=== PATIENT | male | born 1975 | race Caucasian/White ===

== ENCOUNTER 2024-10-30 07:34 | Outpatient (CLI) | payer OTHER, SELFPAY ==
--- OUTSIDE RECORDS SUMMARY | 2024-10-30 07:39 | XMS_ITS | Clinical Summary ---
Author Organization [facility] Address [address] [place] [address] Care Team Providers Care Solution Sales Senior Executive Name Role Phone Franklyn Chan MD Primary Care Provider [phone] Allergies No known active allergies Medications HYDROcodone-acetami nophen (NORCO) 7.5-325 MG tabletIndications:A cute Pain < 7 Day Supply Take 1 tablet by mouth 2 (two) times daily as needed for Pain. Indications: Acute Pain < 7 Day Supply 14 tablet 2 Active tadalafil 20 MG tabletIndications:E rectile dysfunction, unspecified erectile dysfunction type Take 1 tablet (20 mg total) by mouth daily as needed for Erectile Dysfunction. 10 tablet 2 Active rosuvastatin (CRESTOR) 20 MG tabletIndications:M ixed hyperlipidemia Take 1 tablet (20 mg total) by mouth nightly at bedtime. 90 tablet 1 2 Active traZODone 50 MG tabletIndications:P rimary insomnia,Mild episode of recurrent major depressive disorder Take 1 tablet (50 mg total) by mouth nightly at bedtime. 90 tablet 3 2 Active cyclobenzaprine (FLEXERIL) 10 MG tabletIndications:C hronic midline low back pain without sciatica Take 1 tablet (10 mg total) by mouth nightly as needed for Muscle Spasms. 30 tablet 2 Active albuterol sulfate HFA 108 (90 Base) MCG/ACT inhalerIndications: Mild intermittent asthma without complication (HHS/HCC) INHALE 2 PUFFS BY MOUTH EVERY 6 HOURS NEEDED WHEEZING. Please go online and schedule your physical thanks. 8.5 g 4 Active Active Problems Problem Noted Date Diagnosed Date ED (erectile dysfunction) 09/24/2021 Tobacco dependence 09/22/2020 Tobacco use disorder 09/20/2020 Generalized anxiety disorder 09/20/2020 Major depressive disorder with current active ep isode 09/20/2020 Mixed hyperlipidemia 08/23/2020 Mild intermittent asthma without complication (H HS/HCC) 08/22/2020 Primary insomnia 08/22/2020 Resolved Problems Problem Noted Date Diagnosed Date Resolved Date Other fatigue 08/22/2020 09/22/2020 Immunizations Name Administration Dates Next Due Tdap (Adacel) 08/22/2015 Family History Medical History Relation Comments Diabetes Maternal Grandfather polio Maternal Grandfather Cancer pancreatic Maternal Grandmother Stroke Mother stroke at age 55 years Mother Relation Status Comments Father Maternal Grandfather Maternal Grandmother Mother Social History Tobacco Use Types Packs/Day Years Used Date Smoking Tobacco: Every Day Cigarettes 0.5 20 Smokeless Tobacco: Never Tobacco Cessation:Ready to Q uit: Yes; Counseling Given: Yes Comments:used Chantix in the past but never completed therapy. Smokes cigars as well 2 every other night Alcohol Use Standard Drinks/Week Comments Yes 20 (1 standard drink = 0.6 oz pu re alcohol) AUDIT-C Answer Date Recorded Q1: How often do you have a drink containing alc ohol? 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 Gender Identity Not on file Sexual Orientation Not on file Last Filed Vital Signs Vital Sign Reading Time Taken Comments Blood Pressure 138/96 02/26/2022 10:30 AM CDT Pulse 85 02/26/2022 9:49 AM CDT Temperature 37 C (98.6 F) 02/26/2022 9:49 AM CDT Respiratory Rate 18 02/26/2022 9:49 AM CDT Oxygen Saturation 94% 02/26/2022 9:49 AM CDT Inhaled Oxygen Concentration - - Weight 96.3 kg (212 lb 3.2 oz) 02/26/2022 9:49 A M CDT Height 180.3 cm (5' 11 ) 02/26/2022 9:49 AM CDT Body Mass Index 29.6 02/26/2022 9:49 AM CDT Plan of Treatment Health Maintenance Due Date Last Done Comments Colorectal Cancer Screening Colonoscopy (10 Years) 1974 Pneumococcal Vaccine: Pediatrics (0 to 5 Years) and At-Risk Patients (6 to 64 Years) (1 of 2 - PCV) 1980 Hepatitis B Vaccines (1 of 3 - 19+ 3-dose series) 1993 Annual Physical 02/26/2023 02/26/2022, 08/22/2020, 08/22/2020 COVID-19 Vaccine (1 - 2023-2 5 season) 2024 Influenza Adult (#1) 2024 PHQ-2 (Physician [place]) 08/18/2024 Zoster Vaccines (1 of 2) 2024 DTaP, Tdap and Td Vaccines ( 2 - Td or Tdap) 08/22/2025 08/22/2015 Hepatitis C Completed 08/22/2020 Meningococcal B Vaccine Aged Out No l onger eligible based on patient's age to complete this topic Meningococcal Vaccine Aged Out No bhavesh rika eligible based on patient's age to complete this topic RSV Immunizations Under 20 Months Aged Out No longer eligible b ased on patient's age to complete this topic Procedures Procedure Name Priority Date/Time Associated Diagnosis Comments HEPATITIS C ANTIBODY Routine 08/22/2020 3:51 PM CRUISE COORDINATOR Encounter for hepatitis C screening test for low risk patient from Last 3 Months or Most Recently Relevant to Health Maintenance Results * HEPATITIS C ANTIBODY (08/22/2020 3:51 PM CRUISE COORDINATOR) HEPATITIS C AB NON-REACTI VE NON-REACT [place] 08/23/2020 6:10 PM CRUISE COORDINATOR [facility] Comment: ANTIBODIES TO HCV NOT DETECTED. DOES NOT EXCLUDE THE POSSIBILITY OF EXPOSURE TO HCV. 08/22/2020 3:51 PM CRUISE COORDINATOR Franklyn Chan MD LABORATORY Final Result [facility] [address] [place] [address], [id number] from Last 3 Months or Most Recently Relevant to Health Maintenance Insurance GENERIC - COMMERCIAL Care Teams Solution Sales Senior Executive Relationship Specialty Start Date End Date Franklyn Chan MD [address] [facility] [address] [place] [id number] PCP - General INTERNAL MEDICINE 08/21/20
--- OUTSIDE RECORDS SUMMARY | 2024-10-30 07:39 | XMS_ITS | Encounter Summary ---
Author Organization [facility] Address [facility] [place] [address] Care Team Providers Care Immunopathologist Name Role Phone Franklyn Chan MD Primary Care Provider [phone] Encounter Details Date Type Department Care Team (Late st Contact Info) Description 03/20/2022 Semblee_hart Message Enc [facility] Multispecialty Care - [place] [address] [place] [address] [address] [place] [address] [place] [address] [place] [address] [address] [place] [address] Back pain Social History Tobacco Use Types Packs/Day Years Used Date Smoking Tobacco: Every Day Cigarettes 0.5 20 Smokeless Tobacco: Never Comments:used Chantix in the past but never [...] on file 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 No / Unsure 02/28/2022 10:07 AM CDT documented as of this encounter Plan of Treatment Not on file documented as of this encounter Visit Diagnoses Not on filedocumented in this encounter Additional Health Concerns Assessment Noted Time PHQ-9 Depression Total Score: 2 09/22/19 21 3:30 PM RIDER TICKET WORKER documented as of this encounter Care Teams Immunopathologist Relationship Specialty Start Date End Date Franklyn Chan MD [address] [facility] [address] [place] [address] PCP - General INTERNAL MEDICINE 08/21/20 documented as of this encounter
--- OUTSIDE RECORDS SUMMARY | 2024-10-30 07:39 | XMS_ITS | Data Portability ---
[facility] [address] [place] [address] Care Team Providers Care Cord Splicer Name Role Phone CHRISTA COY Primary Care Provider [phone] Assessment No assessment recorded. Plan of Treatment Reminders Order Date Submit Date Provider Last Modified By Organization Details Last Modified Time Details Appointments None recorded. Lab CBC 2023 024 [facility], [address] [place] [address] 2, [place], [address], 4 09:16:34 CMP, serum or plasma 2023 024 [facility], [address] [place] [address] 2, [place], [address], 4 09:16:33 lipid panel, serum 2023 024 [facility], [address] [place] [address] 2, [place], [address], 4 09:16:32 HbA1c (hemoglob in A1c), blood 2023 024 [facility] In-Office Order, Internal Use Only DO Not Attach Compendium DO Not Attach Compendium, Do Not Delete/merge, [id number] 4 12:26:45 Referral physical therapist referral 2024 025 [facility], [address] [place] [address], [address], 5 12:29:35 Procedures None recorded. Surgeries None recorded. Imaging None recorded. Medication Orders naproxen 500 mg tablet 2024 025 [id number], [address], [place], [id number], 5 11:14:53 Chantix Starting Month Box 0.5 mg (11)-1 mg (42) tablets in dose pack 2023 024 [id number], [address], [place], [id number], 5 10:57:45 albuterol sulfate HFA 90 mcg/actua tion aerosol inhaler [address] [id number], [address], [place], [id number], 4 12:12:42 Patient TargetsNo targets recorded. Patient Instructions Encounter Date Encounter Id Patient Instructions Last Modified By Organization Details Last Modified Time 03/01/2024 [id number] deciding about using medicines to quit smoking [email or web address] Not available 03/01/2024 12:18:33 Quitting Tobacco : Care Instructions [email or web address] Not available 03/01/2024 12:18:33 A healthy lifestyle: care instructions jnanney Not available 03/01/2024 12:12:59 Reason for Referral Physical Therapist Referral for Pain of right shoulder joint Referring Physician: Christa Coy, Family Medicine, Encounter Date: 10/05/2024 Results Created Date Observation Date Name Description Value Unit Range Abnormal Flag Note LastModifiedBy Organization Detail LastModifiedTime 03/01/2003/02/2024 LIPID PANEL cholesterol, total 221 mg/dL 100-19 9 above high normal Not Available [facility] [address] [place], [address], 03/02/2024 09:16:31 03/01/20 24 03/02/2024 LIPID PANEL triglyceride s 249 mg/dL 0-149 above high normal Not Available [address], [address], 03/02/2024 09:16:31 03/01/20 24 03/02/2024 LIPID PANEL HDL cholesterol 34 mg/dL >39 below low normal Not Available [address], [address], 03/02/2024 09:16:31 03/01/20 24 03/02/2024 LIPID PANEL VLDL cholesterol david 45 mg/dL 5-40 above high normal Not Available [address], [address], 03/02/2024 09:16:31 03/01/20 24 03/02/2024 LIPID PANEL LDL chol calc (nih) 142 mg/dL 0-99 above high normal Not Available [address], [address], 03/02/2024 09:16:31 03/01/20 24 03/02/2024 COMP. METAB OLIC PANEL (14) glucose 98 mg/dL 70-99 Not Available [address], [address], 03/02/2024 09:16:32 03/01/20 24 03/02/2024 COMP. METAB OLIC PANEL (14) BUN 10 mg/dL 6-24 Not Available [address], [address], 03/02/2024 09:16:32 03/01/20 24 03/02/2024 COMP. METAB OLIC PANEL (14) creatinine 1.02 mg/dL 0.76-1 .27 Not Available [address], [address], 03/02/2024 09:16:32 03/01/20 24 03/02/2024 COMP. METAB OLIC PANEL (14) eGFR 90 mL/mi n/1.7 3 >59 Not Available [address], [address], 03/02/2024 09:16:32 03/01/20 24 03/02/2024 COMP. METAB OLIC PANEL (14) BUN/creatini ne ratio 10 9-20 Not Available [address], [address], 03/02/2024 09:16:32 03/01/20 24 03/02/2024 COMP. METAB OLIC PANEL (14) sodium 145 mmol/ L 134-14 4 above high normal Not Available [address], [address], 03/02/2024 09:16:32 03/01/20 24 03/02/2024 COMP. METAB OLIC PANEL (14) potassium 4.5 mmol/ L 3.5-5. 2 Not Available [address], [address], 03/02/2024 09:16:32 03/01/20 24 03/02/2024 COMP. METAB OLIC PANEL (14) chloride 105 mmol/ L 96-106 Not Available [address], [address], 03/02/2024 09:16:32 03/01/20 24 03/02/2024 COMP. METAB OLIC PANEL (14) carbon dioxide, total 27 mmol/ L 20-29 Not Available [address], [address], 03/02/2024 09:16:32 03/01/20 24 03/02/2024 COMP. METAB OLIC PANEL (14) calcium 9.6 mg/dL 8.7-10 .2 Not Available [address], [address], 03/02/2024 09:16:32 03/01/20 24 03/02/2024 COMP. METAB OLIC PANEL (14) protein, total 7.1 g/dL 6.0-8. 5 Not Available [address], [address], 03/02/2024 09:16:32 03/01/20 24 03/02/2024 COMP. METAB OLIC PANEL (14) albumin 4.6 g/dL 4.1-5. 1 Not Available [address], [address], 03/02/2024 09:16:32 03/01/20 24 03/02/2024 COMP. METAB OLIC PANEL (14) globulin, total 2.5 g/dL 1.5-4. 5 Not Available [address], [address], 03/02/2024 09:16:32 03/01/20 24 03/02/2024 COMP. METAB OLIC PANEL (14) bilirubin, total 0.5 mg/dL 0.0-1. 2 Not Available [address], [address], 03/02/2024 09:16:32 03/01/20 24 03/02/2024 COMP. METAB OLIC PANEL (14) alkaline phosphatase 86 IU/L 44-121 Not Available [address], [address], 03/02/2024 09:16:32 03/01/20 24 03/02/2024 COMP. METAB OLIC PANEL (14) AST (SGOT) 24 IU/L 0-40 Not Available [address], [address], 03/02/2024 09:16:32 03/01/20 24 03/02/2024 COMP. METAB OLIC PANEL (14) ALT (SGPT) 38 IU/L 0-44 Not Available [facility] [address], [address], 03/02/2024 09:16:32 03/01/20 24 03/02/2024 CARDI OVASC ULAR REPOR T interpretati on Note Suppl ement al repor t is avail able. Not Available [address], [address], 03/02/2024 09:16:33 03/01/20 24 03/02/2024 CARDI OVASC ULAR REPOR T pdf . Not Available [address], [address], 03/02/2024 09:16:33 03/01/20 24 03/02/2024 CBC, PLATE LET, NO DIFFE RENTI AL WBC 7.4 x10e3 /uL 3.4-10 .8 Not Available [address], [address], 03/02/2024 09:16:34 03/01/20 24 03/02/2024 CBC, PLATE LET, NO DIFFE RENTI AL RBC 4.83 x10e6 /uL 4.14-5 .80 Not Available [address], [address], 03/02/2024 09:16:34 03/01/20 24 03/02/2024 CBC, PLATE LET, NO DIFFE RENTI AL hemoglobin 16.6 g/dL 13.0-1 7.7 Not Available [address], [address], 03/02/2024 09:16:34 03/01/20 24 03/02/2024 CBC, PLATE LET, NO DIFFE RENTI AL hematocrit 46.4 % 37.5-5 1.0 Not Available [address], [address], 03/02/2024 09:16:34 03/01/20 24 03/02/2024 CBC, PLATE LET, NO DIFFE RENTI AL MCV 96 fL 79-97 Not Available [address], [address], 03/02/2024 09:16:34 03/01/20 24 03/02/2024 CBC, PLATE LET, NO DIFFE RENTI AL MCH 34.4 pg 26.6-3 3.0 above high normal Not Available [address], [address], 03/02/2024 09:16:34 03/01/20 24 03/02/2024 CBC, PLATE LET, NO DIFFE RENTI AL MCHC 35.8 g/dL 31.5-3 5.7 above high normal Not Available [address], [address], 03/02/2024 09:16:34 03/01/20 24 03/02/2024 CBC, PLATE LET, NO DIFFE RENTI AL RDW 12.8 % 11.6-1 5.4 Not Available [address], [address], 03/02/2024 09:16:34 03/01/20 24 03/02/2024 CBC, PLATE LET, NO DIFFE RENTI AL platelets 227 x10e3 /uL 150-45 0 Not Available [address], [address], 03/02/2024 09:16:34 03/01/20 24 03/01/2024 HbA1c (hemo globi n A1c), blood HbA1c 6.2 Not Available In-Office Order Internal Use Only DO Not Attach Compendium DO Not Attach Compendium, Do Not Delete/merge, [id number] 03/01/2024 12:11:34 Result Notes None recorded. Medical Equipment None Reported. Allergies No known drug allergies Medications Name Sig Start Date Stop Date Status Note LastModified by Organization Details LastModified Time albuterol sulfate HFA 90 mcg/actuati on aerosol inhaler INHALE 2 PUFFS BY MOUTH FOUR TIMES DAILY NEEDED active Not Available Not Available No t Available naproxen 500 mg tablet TAKE 1 TABLET BY MOUTH TWICE DAILY active Not Available Not Available No t Available varenicline tartrate 0.5 mg (11)-1 mg (42) tablets in a dose pack FOLLOW PACKAGE DIRECTION S 10/05 completed Not Available Not Available Not Available Vitals Date Recorded Body height Body mass index (BMI) Body weight Oxygen saturation Oxygen saturation in Arterial blood by Pulse oximetry Heart rate Systolic blood pressure Diastolic blood pressure Provider Name and Address Organization Details Last Updated DateTime 4 173.99 cm 32.1 kg/m2 36038.7 7 g 94 % 94 % 96 /min 118 mm[Hg] 88 mm[Hg] Jacy Salazar [place] [facility] 4 12:03:20 Date Recorded Body height Body mass index (BMI) Body weight Oxygen saturation Oxygen saturation in Arterial blood by Pulse oximetry Heart rate Respiratory rate Systolic blood pressure Diastolic blood pressure Provider Name and Address Organization Details Last Updated DateTime 5 173.99 cm 33.5 kg/m2 329652. 54 g 98 % 98 % 87 /min 16 /min 118 mm[Hg] 80 mm[Hg] Teresita Tilley [place] [facility] 5 11:00:18 Date Recorded Body height Body mass index (BMI) Body weight Oxygen saturation Oxygen saturation in Arterial blood by Pulse oximetry Heart rate Respiratory rate Systolic blood pressure Diastolic blood pressure Provider Name and Address Organization Details Last Updated DateTime 5 173.99 cm 33.1 kg/m2 633524. 91 g 95 % 95 % 94 /min 16 /min 132 mm[Hg] 84 mm[Hg] Teresita Tilley [place] [facility] 5 10:43:12 Social History Question Answer Notes LastModified by Organizat ion Details LastModified Time Tobacco Smoking Status Current Every Day Smoker Quit Teresita Tilley MA [facility], [place] - [facility] 10/05/2024 10:57:57 What Is Your Level Of Alcohol Consumption? Occasional Information not available 03/01/2024 Are You Blind Or Do You Have Difficulty Seeing? Yes Glasses Information not available 03/01/2024 What Is Your Level Of Caffeine Consumption? Moderate Information not available 03/01/2024 Are You Currently Employed? Yes Information not available 03/01/2024 Are You Deaf Or Do You Have Serious Difficulty Hearing? No Information not available 03/01/2024 What Type Of Diet Are You Following? 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 10/19/2024 Information not available 10/19/2024 What Is Your Relationship Status? Information not available 03/01/2024 Do You Have Smoke And Carbon Monoxide Detectors In Your Home? Yes Information not available 03/01/2024 Are You Passively Exposed To Smoke? Yes Information not available 03/01/2024 How Much Tobacco Do You Smoke? 1 PPD Information not available 03/01/2024 Do You Feel Stressed (tense, Restless, Nervous, Or Anxious, Or Unable To Sleep At Night)? [id number] Information not available 03/01/2024 Do You Use Any Illicit Or Recreational Drugs? Yes Marijuana Information not available 03/01/2024 Has Tobacco Cessation Counseling Been Provided? Yes Information not available 03/01/2024 On What Date Was Tobacco Cessation Counseling Provided? 10/19/2024 Information not available 10/19/2024 Do You Or Have You Ever Used Any Other Forms Of Tobacco Or Nicotine? No Information not available 03/01/2024 Sex: Male Functional Status Question Answer Note LastModified by Organization D etails LastModified Time Are you able to care for yourself? Yes Information n ot available 03/01/2024 Mental Status None recorded. Family History Nothing Reported. Medical History Condition Response Coronary Artery Disease N Other N High Blood Pressure N Atrial Fibrillation N Kidney or Bladder Problems N Thyroid Problems N GI Problems N Depression N COPD N Blood Clots N Have you had a mammogram in the last yea r? N Skin Problems N Eating Disorder N Anemia N Heart Attack (HI) N Anxiety Disorder N Diabetes N Muscle, Joint, or Bone Problems N Arthritis N Seizures/Epilepsy N Have you had a colonoscopy in the last 1 0 years? N Acid Reflux (GERD) N Cancer N Stroke N Asthma N Allergies N Have you had a PSA blood test in the las t year? N ADHD N Substance Abuse N High Cholesterol N Hepatitis N Liver Disease N Schizophrenia N Headaches N Osteoporosis N Heart Failure N Past Encounters Encounter ID Performer Location Encounter Start Date Encounter Closed Date Diagnosis/Indication Diagnosis SNOMED-CT Code Diagnosis ICD10 Code Diagnosis Note [id number] Christa Coy PA-C [facility] [address] [place] [address] 03/01/2024 11:51:46 03/15/2024 12:53:18 Mild intermittent asthma 783498987 J45.20 Adult [facility] examination 925796889 Z00.00 Overweight 105852883 E66 .3 Tobacco de pendence syndrome 45445620 F17.606 [id number] Christa Coy PA-C [facility] [address] [place] [address] 10/05/2024 10:51:00 10/11/2024 09:54:22 Pain of right shoulder joint 5865721390 8954553 M25.233 [id number] Christa Coy PA-C [facility] [address] [place] [address] 10/19/2024 10:37:08 10/20/2024 09:49:02 Injury of tendon of the rotator cuff of shoulder 539898166 S46.001D Health Concerns Section Related Observation LastModified by Organization Detai ls LastModified Time None Recorded Concern Status LastModified by Organization Details LastModified Time None Recorded Advance Directives Directive None Recorded Payers Encounter Date Sequence Insurance Name Policy Number Policy Ritter Covered Member ID Ritter Member ID Guarantor Name 03/01/2024 1 [facility] [id number] Vasiliy Chahal [id number] Vasiliy Gutiérrez 10/05/2024 [facility] Vasiliy Gutiérrez 10/19/2024 [facility] [employer] Vasiliy Gutiérrez Notes Date Note Type Note Provider Name and Address Organization Details Recorded Time 03/01/2024 text/html here from Dr Jaya Ferguson ...we are closer...asthma. ..no labs in 2 years...also wants to try chantix for cigs Christa Coy PA-C Attn: Accounting,[address] [facility], [place], [address], [facility] 03/01/2024 12:18:45 10/05/2024 text/html slipped on ice at work in [place]..injured rt shoulder..seen in urgent care in [place]...has a note from them to return to work on 10-06-24..xray was done but nothing else..cannot move rt shoulder laterally only to about 10 degrees. Christa Coy PA-C Attn: Accounting,[address] [facility], [place], [address], [facility] 10/05/2024 11:15:52 10/19/2024 text/html rt shoulder still has not had mri but was supposed to be back to work today... Christa Coy PA-C Attn: Accounting,[address] [place], [address], [facility] 10/19/2024 11:02:18
--- OUTSIDE RECORDS SUMMARY | 2024-10-30 07:39 | XMS_ITS | Encounter Summary ---
Author Organization [facility] Address [facility] [place] [address] Care Team Providers Care Probation Officer Name Role Phone Franklyn Chan MD Primary Care Provider [phone] Encounter Details Date Type Department Care Team (Latest Contact Info) Description 10/22/2021 [facility] Health Networkhart Message Enc [facility] Multispecialty Care - [place] [address] [place] [address] [address] [place], [place] [id number] Franklyn Chan MD [address] [facility] [address] [place], [place] [id number] due for physical and blood work Social History Tobacco Use Types Packs/Day Years [...] please move on to questions 3-9 0 09/22/2020 Sex and Gender Information Value Date Recorded Sex Assigned at Not on file 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
--- OUTSIDE RECORDS SUMMARY | 2024-10-30 07:39 | XMS_ITS | Encounter Summary ---
Author Organization [facility] Address [facility] [place] [address] Care Team Providers Care Machine Filler Servicer Name Role Phone Franklyn Chan MD Primary Care Provider [phone] Encounter Details Date Type Department Care Team (Latest Contact Info) Description 12/25/2020 SoftArtt Message Enc [facility] - [place] [address] [place] [address] [address] [place], [place] [id number] Franklyn Chan MD [address] [facility] [address] [place] [address] We missed you today! 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
== END 2024-10-30 07:35 | disposition home or self-care (01) ==
PROVIDERS: PCP Physician Assistant; Visit Provider Physician Assistant
DX: M25.511 Pain in right shoulder (principal)
CPT/HCPCS: 99199